=== PATIENT | female | born 1965 | race Caucasian/White ===

== ENCOUNTER 2016-12-28 10:17 | Observation (INO) | payer BC, OTHER ==
[2016-12-28] VITALS (8 sets, daily range): BP systolic 92–124; BP diastolic 52–79; PULSE 53–88; TEMP 36.6–36.7; O2SAT 94–100; Ht 175.3 cm; Wt 91.6 kg
[~2016-12-28] VITALS: Ht 175.3 cm; Wt 91.6 kg
[2016-12-28] MEDS ORDERED: FENTANYL CITRATE INJ 50 MCG/1 ML 2 ML VIAL IV STA (10:51)
[2016-12-28 11:02] LABS: BASO % 0.4 %; BASO ABS # 0.02 K/uL (0-0.2); COMPLETE YES; EOS % 1.6 %; HEMATOCRIT 40.5 % (37-47); IG% 0.2 %; LYMPH % 15.1 %; LYMPH ABS # 0.75 K/uL (1.2-3.4); MEAN CELL VOLUME 88.2 fL (80-100); MEAN CORPUSCULAR HEMOGLOBIN 32.2 pg (25-34); MEAN CORPUSCULAR HGB CONC 36.5 g/dl (32-36); MEAN PLATELET VOLUME 9.7 fL (7.4-10.4); MONO % 6.2 %; NEUT % 76.5 %; PLATELET COUNT 186 K/uL (130-400); RED BLOOD COUNT 4.59 M/uL (4.2-5.4); WHITE BLOOD COUNT 4.97 K/uL (4.8-10.8)
[2016-12-28] MEDS ORDERED: NTRGSL/4 SL (11:37)
[2016-12-28] MEDS ORDERED: VERA1CAP7 PO (11:37)
[2016-12-28] MEDS ORDERED: VLM5CL (11:37)
[2016-12-28] MEDS ORDERED: TOPI50TA16 PO (11:37)
[2016-12-28] MEDS ORDERED: ASPI-390 (11:37)
[2016-12-28] MEDS ORDERED: ASPI81TA28 PO (11:37)
[2016-12-28] MEDS ORDERED: CLOP1TAB15 PO (11:37)
--- NOTE | 2016-12-28 11:37 | DIAGNOSTIC IMAGING REPORT ---
CHEST ONE VIEW PORTABLE HISTORY: 51 years-old Female Chest Pain acute atypical chest pain COMPARISON: None available TECHNIQUE: Portable upright AP view of the chest FINDINGS: Cardiomediastinal and hilar silhouettes are within normal limits. Coronary arterial stent graft noted. No pneumothorax, pleural effusion, focal airspace consolidation or overt pulmonary edema. Bones of the chest are grossly intact. IMPRESSION: 1. No acute cardiopulmonary process. 2. Coronary arterial stent graft noted. The above report was generated using voice recognition software. It may contain grammatical, syntax or spelling errors. Electronically signed by: Perez Yu M.D. 12/28/2016 11:35 AM Dictated Date/Time: 12/28/2016 11:34 AM
[2016-12-28 11:43] LABS: ALKALINE PHOSPHATASE 95 U/L (45-117); ALT/SGPT 21 U/L (12-78); AST/SGOT 19 U/L (15-37); BLOOD UREA NITROGEN 14 mg/dl (7-18); BUN/CREATININE RATIO 12.8 (10-20); CALCIUM 9.2 mg/dl (8.5-10.1); CARBON DIOXIDE 22 mmol/L (21-32); CHLORIDE 112 mmol/L (98-107); CKMB/CK RATIO 1.9 (0-3.0); CREATININE 1.09 mg/dl (0.60-1.20); GLUCOSE 94 mg/dl (70-99); POTASSIUM 3.9 mmol/L (3.5-5.1); SODIUM 141 mmol/L (136-145)
[2016-12-28] MEDS ORDERED: ACETAMINOPHEN 325 MG TAB PO PRN (13:15)
[2016-12-28] MEDS ORDERED: DIAZ5TAB3 PO (13:17)
--- NOTE | 2016-12-28 13:43 | DIAGNOSTIC IMAGING REPORT ---
HEAD WITHOUT CONTRAST (CT) CLINICAL HISTORY: 51 years-old Female with Pre-syncope . Acute presyncopal event TECHNIQUE: Multiple axial CT images of the head were obtained without contrast. A dose lowering technique was utilized adhering to the principles of ALARA. CT DOSE: 679.75 mGycm COMPARISON: None. FINDINGS: No acute intracranial hemorrhage, midline shift, mass, large territorial ischemia or abnormal extra-axial collection. The calvarium is intact. The paranasal sinuses, mastoid air cells, and middle ear cavities are clear. IMPRESSION: No acute intracranial abnormality. The above report was generated using voice recognition software. It may contain grammatical, syntax or spelling errors. Electronically signed by: Perez Yu M.D. 12/28/2016 1:42 PM Dictated Date/Time: 12/28/2016 1:40 PM
[2016-12-28] MEDS ORDERED: IV FLUIDS COMPLETED PRN (13:45)
--- NOTE | 2016-12-28 14:10 | EMERGENCY ROOM VISIT NOTE ---
History Report prepared by Brock: Adrianna Lyman Under the Supervision of: Dr. Parvez Lofton D.O. First contact with patient: 10:41 Chief Complaint: CHEST PAIN Stated Complaint: AB PAIN CHEST PAIN LEFT ARM PAIN Nursing Triage Summary: pt reports chest pain and radiates down left arm started having abd pain last night with diarrhea has hx of 3 stents placed in march at [facility]. took 2 nitro did not help History of Present Illness The patient is a 51 year old female who presents to the Emergency Room with complaints of constant chest pain beginning this morning. Last night the patient states that she started experiencing abdominal cramping and diarrhea. She is in town for a conference and states that she has been feeling unwell. She has been tired and not eating much. This morning her symptoms persisted. When she woke up she started experiencing chest tightness, nausea, left arm pain , and left jaw pain. The patient rates her pain as a 6/10 in severity. She had an VT in March 2016 and had 3 stents placed at that time. She states that her current symptoms feel exactly like her previous VT, except that she is not currently having any burning chest pain. She took 2 nitro without any relief. Pt denies change in vision, fevers, shortness of breath, vomiting, pain with urination, and melena. She denies any history of blood clots. Source of History: patient Onset: this morning Position: chest Symptom Intensity: 6/10 Quality: other (tightness) Timing: constant Associated Symptoms: + nausea, + abdominal pain, + diarrhea, + fatigue, No fevers, No SOB, No vomiting, No melena, No urinary symptoms Note: Pt notes left arm pain and left jaw pain. Review of Systems See HPI for pertinent positives & negatives. A total of 10 systems reviewed and were otherwise negative. Past Medical & Surgical Medical Problems: (1) CAD (coronary artery disease) (2) Fibromuscular dysplasia (3) Hemiplegic migraine (4) Hx of myocardial infarction (5) Migraine headache Surgical Problems: (1) H/O heart artery stent (2) H/O: hysterectomy (3) Hx of appendectomy Family History Heart disease Social History Smoking Status: Never Smoker Smokeless Tobacco Use: No Alcohol Use: occasionally Drug Use: none Marital Status: Housing Status: lives with family Occupation Status: employed Current/Historical Medications Scheduled Aspirin (Aspirin Ec), 81 MG PO DAILY Clopidogrel (Plavix), 75 MG PO DAILY Nitroglycerin (Nitrostat), 1 TAB SL UD Topiramate (Topamax), 1 TAB PO BID Verapamil (Verelan Pm), 300 MG PO HS Scheduled PRN Diazepam (Valium), 1 TAB PO BID PRN for Headache or Pain Miscellaneous Medications Kapupgg-Vrlycjarykfts-Nwkydjbt (Excedrin Migraine) Allergies Coded Allergies: Droperidol (Unverified Allergy, Unknown, unknown reaction when coming out of anethesia, 12/28/16) Morphine (Unverified Allergy, Unknown, blood pressure issues, 12/28/16) Physical Exam Vital Signs Date Time Temp Pulse Resp B/P (MAP) Pulse Ox O2 Delivery O2 Flow Rate FiO2 12/28/16 13:50 60 18 112/67 100 Room Air 12/28/16 13:12 100 Room Air 12/28/16 12:31 63 12/28/16 12:25 60 16 104/63 100 Room Air 12/28/16 11:01 68 12/28/16 10:55 68 16 110/66 98 Room Air 12/28/16 10:30 36.5 80 18 141/70 99 Room Air Physical Exam GENERAL: alert, disheveled, well appearing, well nourished, no distress, non- toxic EYE EXAM: normal conjunctiva, PERRL and EOM's intact OROPHARYNX: no exudate, no erythema, lips, buccal mucosa, and tongue normal and mucous membranes are moist NECK: supple, no nuchal rigidity, no adenopathy, non-tender LUNGS: Clear to auscultation. Normal chest wall mechanics HEART: no murmurs, S1 normal and S2 normal ABDOMEN: abdomen soft, non-tender, normo-active bowel sounds, no masses, no rebound or guarding. BACK: Back is symmetrical on inspection and there is no deformity, no midline tenderness, no CVA tenderness. SKIN: no rashes and no bruising UPPER EXTREMITIES: upper extremities are grossly normal. Radial pulses are equal bilateral LOWER EXTREMITIES: No pitting edema. NEURO EXAM: Normal sensorium, cranial nerves II-XII intact, normal speech, no weakness of arms, no weakness of legs. No drift. Finger to nose intact. Gross sensation intact. Medical Decision & Procedures ER Provider Diagnostic Interpretation: Radiology results as stated below per my review and the radiologist's interpretation: CHEST ONE VIEW PORTABLE HISTORY: 51 years-old Female Chest Pain acute atypical chest pain COMPARISON: None available TECHNIQUE: Portable upright AP view of the chest FINDINGS: Cardiomediastinal and hilar silhouettes are within normal limits. Coronary arterial stent graft noted. No pneumothorax, pleural effusion, focal airspace consolidation or overt pulmonary edema. Bones of the chest are grossly intact. IMPRESSION: 1. No acute cardiopulmonary process. 2. Coronary arterial stent graft noted. The above report was generated using voice recognition software. It may contain grammatical, syntax or spelling errors. Electronically signed by: Perez Yu M.D. 12/28/2016 11:35 AM Dictated Date/Time: 12/28/2016 11:34 AM Laboratory Results 12/28/16 10:49 Red Blood Count 4.59, Mean Corpuscular Volume 88.2, Mean Corpuscular Hemoglobin 32.2, Mean Corpuscular Hemoglobin Concent 36.5, Mean Platelet Volume 9.7, Neutrophils (%) (Auto) 76.5, Lymphocytes (%) (Auto) 15.1, Monocytes (%) (Auto) 6.2, Eosinophils (%) (Auto) 1.6, Basophils (%) (Auto) 0.4, Neutrophils # (Auto) 3.80, Lymphocytes # (Auto) 0.75, Monocytes # (Auto) 0.31, Eosinophils # (Auto) 0.08, Basophils # (Auto) 0.02 12/28/16 10:49 Test 12/28/16 10:49 White Blood Count 4.97 K/uL (4.8-10.8) Red Blood Count 4.59 M/uL (4.2-5.4) Hemoglobin 14.8 g/dL (12.0-16.0) Hematocrit 40.5 % (37-47) Mean Corpuscular Volume 88.2 fL (80-100) Mean Corpuscular Hemoglobin 32.2 pg (25-34) Mean Corpuscular Hemoglobin Concent 36.5 g/dl (32-36) Platelet Count 186 K/uL (130-400) Mean Platelet Volume 9.7 fL (7.4-10.4) Neutrophils (%) (Auto) 76.5 % Lymphocytes (%) (Auto) 15.1 % Monocytes (%) (Auto) 6.2 % Eosinophils (%) (Auto) 1.6 % Basophils (%) (Auto) 0.4 % Neutrophils # (Auto) 3.80 K/uL (1.4-6.5) Lymphocytes # (Auto) 0.75 K/uL (1.2-3.4) Monocytes # (Auto) 0.31 K/uL (0.11-0.59) Eosinophils # (Auto) 0.08 K/uL (0-0.5) Basophils # (Auto) 0.02 K/uL (0-0.2) RDW Standard Deviation 41.4 fL (36.4-46.3) RDW Coefficient of Variation 13.0 % (11.5-14.5) Immature Granulocyte % (Auto) 0.2 % Immature Granulocyte # (Auto) 0.01 K/uL (0.00-0.02) Anion Gap 8.0 mmol/L (3-11) Est Creatinine Clear Calc Drug Dose 72.6 ml/min Estimated GFR () 67.6 Estimated GFR (Non- 58.3 BUN/Creatinine Ratio 12.8 (10-20) Calcium Level 9.2 mg/dl (8.5-10.1) Total Bilirubin 0.8 mg/dl (0.2-1) Direct Bilirubin mg/dl (0-0.2) Aspartate Amino Transf (AST/SGOT) 19 U/L (15-37) Alanine Aminotransferase (ALT/SGPT) 21 U/L (12-78) Alkaline Phosphatase 95 U/L (45-117) Total Creatine Kinase 139 U/L (26-192) Creatine Kinase MB 2.6 ng/ml (0.5-3.6) Creatine Kinase MB Ratio 1.9 (0-3.0) Troponin I < 0.015 ng/ml (0-0.045) Total Protein 6.9 gm/dl (6.4-8.2) Albumin 4.3 gm/dl (3.4-5.0) Lipase 85 U/L (73-393) Chemistry Specimen Hemolysis Laboratory results per my review. Medications Administered Medications (Trade) Dose Ordered Sig/Rosaura Route Start Time Stop Time Status Last Admin Dose Admin Fentanyl Citrate (Fentanyl Inj) 50 mcg NOW STAT IV 12/28/16 10:51 12/28/16 10:52 DC 12/28/16 11:01 50 MCG ECG Indication: chest pain Rate (beats per minute): 86 Rhythm: normal sinus Findings: ST depression (Lateral), left axis deviation Comparison ECG Date: 12/28/16 Change: Repeat ECG reveals improvement of the ST depressions in the lateral leads. ED Course ED COURSE: Vital signs were reviewed and showed normal vitals. The patients medical record was reviewed The above diagnostic studies were performed and reviewed. ED treatments and interventions as stated above. 1041: The patient was evaluated in room A12B. A complete history and physical examination was performed. 1051: Fentanyl 50 mcg IV 1153: Upon reevaluation, the patient is resting comfortably. I discussed my findings with the patient and she understands and agrees with the treatment plan. Based on the patients age, coexisting illnesses, exam and lab findings the decision to treat as an inpatient was made. The patient remained stable while under my care. The patient will be evaluated for further management. 1156: I reviewed the patient's case with Blanca Amaral PA-C. The [facility] will evaluate the patient for further management. Medical Decision Differential diagnoses includes but is not limited to acute coronary syndrome, myocardial infarction, pericarditis, pulmonary embolus, aortic dissection, pneumonia, pneumothorax, musculoskeletal, shingles, esophageal. Patient is a 51-year-old female who presents to ER for precordial chest pain associated with abdominal pain. She notes this feels exactly like her previous VT when she received 3 stents past March. Only thing different is she does not have a burning in her chest but she does have a pressure, left arm, left jaw and shortness of breath. Upon was negative. EKG without previous to compare to shows ischemic changes. She was given fentanyl. She had improvement of her symptoms. She had improvement of the EKG as well. She was given aspirin. Case is discussed with internal medicine she was admitted for further workup. Medication Reconcilliation Current Medication List: was personally reviewed by me Blood Pressure Screening Patient's blood pressure: Normal blood pressure Consults Time Called: 1153 Consulting Physician: Blanca Amaral PA-C Returned Call: 1156 I reviewed the patient's case with Blanca Amaral PA-C. The [facility] will evaluate the patient for further management. Impression Primary Impression: Precordial chest pain Additional Impression: Diffuse abdominal pain Scribe Attestation The scribe's documentation has been prepared under my direction and personally reviewed by me in its entirety. I confirm that the note above accurately reflects all work, treatment, procedures, and medical decision making performed by me. Departure Information Dispostion Being Evaluated By Hospitalist Referrals No Doctor, Assigned (PCP) Patient Instructions My [facility] Problem Qualifiers
[2016-12-28] MEDS ORDERED: OPTIRAY 320 IV PRN (14:15)
--- NOTE | 2016-12-28 15:20 | History and Physical ---
History & Physical Date & Time of Service: Dec 28, 2016 at 14:22 Chief Complaint: Chest Pain,Sob Primary Care Physician: No Doctor, Assigned History of Present Illness Source: patient This is a 51yo F with a PMH of an MT (s/p stents x 3 to D2), fibromuscular dysplasia and hemiplegic migraines who presents with chest pressure beginning this AM. Patient is in town from [place] for a conference and started to experience mid-epigastric abdominal pain with associated diarrhea after dinner last evening. Symptoms subsided overnight. Woke up this AM with substernal chest pressure that is constant, 7/10, with pain radiating down L arm. Associated symptoms include SOB, nausea and dizziness. Also endorses near syncope when walking in her hotel room preparing to come to the ER. Took 2 sublingual ntg without relief. States that this pain feels very similar to her MT in March except that she is not experiencing a burning sensation in addition to substernal pressure. This past March, patient was evaluated for similar CP at [facility] and had 3 stents placed. Later that month, patient experienced complete numbness of her L arm and was admitted to the same hospital for a stroke work-up. It was determined to be caused by a hemiplegic migraine. In April of this year, patient went to [facility] for further evaluation of her symptoms and was diagnosed with fibromuscular dysplasia. 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 Are awaiting OSH records to confirm. In addition to chest pain, diffuse abdominal pain and nausea, patient also endorses generalized fatigue and weakness. Endorses chronic lightheadedness, blurred vision and a "whooshing" sound in her ears, which she attributes to the fibromuscular dysplasia. Denies any headache, syncopal events, confusion, palpitations, vomiting, dysuria, constipation, diarrhea, LE swelling or focal neurological deficits. Past Medical/Surgical History Medical Problems: (1) Fibromuscular dysplasia Status: Chronic (2) Hemiplegic migraine Status: Chronic (3) Hx of myocardial infarction Permanent Comment: S/p stents x 3 in Mar 2016 Status: Resolved (4) Migraine headache Status: Chronic Surgical Problems: (1) H/O heart artery stent Status: Chronic (2) H/O: hysterectomy Status: Resolved (3) Hx of appendectomy Status: Resolved Family History Heart disease Social History Smoking Status: Never Smoker Smokeless Tobacco Use: No Alcohol Use: occasionally (1 drink every few months) Drug Use: none Marital Status: Housing status: lives with family (in [place] ) Occupational Status: employed Allergies Coded Allergies: Droperidol (Unverified Allergy, Unknown, unknown reaction when coming out of anethesia, 12/28/16) Morphine (Unverified Allergy, Unknown, blood pressure issues, 12/28/16) Home Medications Scheduled Aspirin (Aspirin Ec), 81 MG PO DAILY Clopidogrel (Plavix), 75 MG PO DAILY Nitroglycerin (Nitrostat), 1 TAB SL UD Topiramate (Topamax), 1 TAB PO BID Verapamil (Verelan Pm), 300 MG PO HS Scheduled PRN Diazepam (Valium), 1 TAB PO BID PRN for Headache or Pain Miscellaneous Medications Akkpxpl-Gckpemdcxttwq-Fkvykxer (Excedrin Migraine) Review of Systems Constitutional- no fever; no weight loss Eyes- See HPI ENT- no sinus drainage; no pharyngitis Pulmonary- See HPI Cardiac- See HPI GI- See HPI - no dysuria, no hematuria Musculoskeletal- no arthralgias, no myalgias Derm- no rashes, no new skin lesions, no changing skin lesions Hematologic- no unusual bruising, no unusual bleeding Lymphatics- no adenopathy Endocrine- no polyuria or polydipsia; no heat or cold intolerance Neuro- See HPI Psych- no anxiety, no depression Physical Exam Vital Signs Date Time Temp Pulse Resp B/P (MAP) Pulse Ox O2 Delivery O2 Flow Rate FiO2 12/28/16 14:16 36.7 88 20 115/69 (84) 99 105/69 (81) 12/28/16 13:50 60 18 112/67 100 Room Air 12/28/16 13:12 100 Room Air 12/28/16 12:31 63 12/28/16 12:25 60 16 104/63 100 Room Air 12/28/16 11:01 68 12/28/16 10:55 68 16 110/66 98 Room Air 12/28/16 10:30 36.5 80 18 141/70 99 Room Air General appearance: awake and alert, appears healthy, no deformities BP: 140/70 HR: 80, regular Resp: 18 Eyes: Sclera: white, conjuntiva: pink. Eyelids without erythema or lesions. PERRL. Pupils and irises round and symmetric. ENT: External ears without lesions, masses or tenderness. Nose with pink mucosa , no discharge. Oropharynx mucosa intact. No lesions, masses. Dentition intact. Neck: Supple, without lesions or masses. Trachea midline. Thyroid is non- enlarged, non-tender. Respiratory: Normal respiratory effort. No intercostal retractions or use of accessory muscles. Chest is non-tender. Clear breath sounds on auscultation. No wheezing, rales, rhonci. Cardiovascular: S1 S2 normal, no murmurs, gallops, rubs. PMI palpable, non- displaced. No edema in extremities. GI: No masses or abnormal pulsations visualized. Bowel sounds normal. Abdomen soft, non-tender. No hepatomegaly or splenomegaly. MSK: No clubbing, cyanosis of digits. Normal capillary refill. Bilateral UE and LE without asymmetry, defects or tenderness. FAROM of BLE BUE. Slight weakness noted in EMILIE of L arm compared to R arm. No muscle atrophy or abnormal movements. Skin: No rashes, lesions, ulcers. Palpation is normal, no induration. Neuro: CN II-XII intact. Sensation intact with light and sharp touch. Psych: Normal judgement, insight. Alert and oriented to person, place, time. Normal mood and affect. Diagnostics Laboratory Results Results Past 24 Hours Test 12/28/16 10:49 Range/Units White Blood Count 4.97 4.8-10.8 K/uL Red Blood Count 4.59 4.2-5.4 M/uL Hemoglobin 14.8 12.0-16.0 g/dL Hematocrit 40.5 37-47 % Mean Corpuscular Volume 88.2 80-100 fL Mean Corpuscular Hemoglobin 32.2 25-34 pg Mean Corpuscular Hemoglobin Concent 36.5 32-36 g/dl Platelet Count 186 130-400 K/uL Mean Platelet Volume 9.7 7.4-10.4 fL Neutrophils (%) (Auto) 76.5 % Lymphocytes (%) (Auto) 15.1 % Monocytes (%) (Auto) 6.2 % Eosinophils (%) (Auto) 1.6 % Basophils (%) (Auto) 0.4 % Neutrophils # (Auto) 3.80 1.4-6.5 K/uL Lymphocytes # (Auto) 0.75 1.2-3.4 K/uL Monocytes # (Auto) 0.31 0.11-0.59 K/uL Eosinophils # (Auto) 0.08 0-0.5 K/uL Basophils # (Auto) 0.02 0-0.2 K/uL RDW Standard Deviation 41.4 36.4-46.3 fL RDW Coefficient of Variation 13.0 11.5-14.5 % Immature Granulocyte % (Auto) 0.2 % Immature Granulocyte # (Auto) 0.01 0.00-0.02 K/uL D-Dimer 300 0-500 ug/L FEU Sodium Level 141 136-145 mmol/L Potassium Level 3.9 3.5-5.1 mmol/L Chloride Level 112 98-107 mmol/L Carbon Dioxide Level 22 21-32 mmol/L Anion Gap 8.0 3-11 mmol/L Blood Urea Nitrogen 14 7-18 mg/dl Creatinine 1.09 0.60-1.20 mg/dl Est Creatinine Clear Calc Drug Dose 72.6 ml/min Estimated GFR () 67.6 Estimated GFR (Non- 58.3 BUN/Creatinine Ratio 12.8 10-20 Random Glucose 94 70-99 mg/dl Calcium Level 9.2 8.5-10.1 mg/dl Total Bilirubin 0.8 0.2-1 mg/dl Direct Bilirubin 0-0.2 mg/dl Aspartate Amino Transf (AST/SGOT) 19 15-37 U/L Alanine Aminotransferase (ALT/SGPT) 21 12-78 U/L Alkaline Phosphatase 95 45-117 U/L Total Creatine Kinase 139 26-192 U/L Creatine Kinase MB 2.6 0.5-3.6 ng/ml Creatine Kinase MB Ratio 1.9 0-3.0 Troponin I < 0.015 0-0.045 ng/ml Total Protein 6.9 6.4-8.2 gm/dl Albumin 4.3 3.4-5.0 gm/dl Lipase 85 73-393 U/L Chemistry Specimen Hemolysis Diagnostic Radiology CXR: IMPRESSION: 1. No acute cardiopulmonary process. 2. Coronary arterial stent graft noted. CT Head: IMPRESSION: No acute intracranial abnormality. EKG Sinus bradycardia Nonspecific ST abnormality Impression Assessment and Plan This is a 51yo F with a PMH of an MT (s/p stents x 3 to D2), fibromuscular dysplasia and hemiplegic migraines who presents with chest pressure beginning this AM. Chest pain: -R/o ACS; risk factors include: previous MT -H/o cardiac cath in 03/29; stents x 3 to D2 -Awaiting OSH records -Initial troponin negative -EKG- NSR with non-specific ST and T wave abnormalities (no EKG on file for comparison). Repeat EKG showed sinus bradycardia but no progression/change of non-specific ST and T wave abnormalities -CXR- no acute process -Trend serial cardiac enzymes -Continue aspirin, plavix -Consulted cardio for further recs -Repeat EKG in am Stable brain aneurysm: -Per patient, aneurysm is at the A1-A2 junction -2/2 fibromuscular dysplasia, per patient -Awaiting OSH records -Asymptomatic -Consulted neuro, who recommended a CTA head Fibromuscular dysplasia: -Follows with Dr. 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 Greer. DVT Ppx: SCDs Code status: FULL PCP: Nighat ([facility]) Dispo: Plan to return home once medically stable Attending Addendum: The patient was seen and examined in ER Has Fibromyalgia with with H/O ACS s/p Stent x3 in Diagonal and hemiplegic migraine and being followed up in [facility] Admitted with Abdominal discomfort ,Chest pressure ,dizzy spell and minimal weakness in LUE Hemodynamically stable in ER with Unremarkable physical exam,labs and Imaging studies Reviewed the charts ,labs and Imaging studies Cardio,Neuro and Rheumatex consulted Agree with the Assessment and Plan Dr Ab Greer Level of Care Telemetry Advanced Directives Existing Living Will: No Existing Power of Packing Machine Operator: No Resuscitation Status FULL RESUSCITATION VTE Prophylaxis VTE Risk Assessment Done? Y/N: Yes Risk Level: Moderate Given or contraindicated: SCD's Social Service Consult None Apply
--- NOTE | 2016-12-28 15:32 | DIAGNOSTIC IMAGING REPORT ---
HEAD ANGIO WITH CONTRAST HISTORY: 51 years-old Female presents with acute presyncopal event. Reported aneurysm at the A1-A2 junction. Follow-up study. No CTA available for comparison at time of dictation. COMPARISON: CT head of same day TECHNIQUE: CTA of the head was obtained following the intravenous administration of 94 mL Optiray 320. 3-D coronal and sagittal MIPS were submitted for review. All measurements were obtained according to NASCET criteria. FINDINGS: CTA: There is atheromatous plaquing involving the distal cervical segments of the bilateral internal carotid arteries without high-grade stenosis. The remaining imaged bilateral internal carotid arteries are patent and appear normal. The imaged bilateral middle cerebral arteries are patent. The bilateral A1 segments are patent. There appears to be fenestration of the A1/A2 junction with 2 anterior communicating arteries present as seen on image 92 of series 2 and image 93. Minimal dilation of the left A2 segment on image 95 appears to be centered at the vessel infundibulum, 3 mm with the remaining portion of the A2 vessel measuring 2 mm. Imaged bilateral vertebral arteries are patent. The basilar artery and posterior cerebral arteries are patent. No high-grade stenosis, dissection or proximal branch occlusion. Venous sinuses appear patent. Imaged intracranial structures are unremarkable. No abnormal intra-axial or extra-axial enhancement. Bones appear intact. IMPRESSION: 1. 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 Minimal dilation of 3 mm involving the proximal A2 segment on the left is attributed to the vessel infundibulum from the distal most anterior communicating artery without evidence of focal aneurysm within this location. 2. No high-grade stenosis, occlusion or dissection. 3. Mild atheromatous plaquing involves the distal cervical portions of the internal carotid arteries bilaterally without high-grade stenosis. The above report was generated using voice recognition software. It may contain grammatical, syntax or spelling errors. Electronically signed by: Perez Yu M.D. 12/28/2016 3:31 PM Dictated Date/Time: 12/28/2016 3:16 PM
--- NOTE | 2016-12-28 16:04 | CARDIOLOGY CONSULTATION ---
DATE OF CONSULTATION: 12/28/2016 DATE OF CONSULTATION: 12/28/2016 REFERRING PHYSICIAN: Virginie guerrero. REASON FOR CONSULTATION: Chest and left arm discomfort. HISTORY OF PRESENT ILLNESS: This is a 51-year-old female with a history of fibromuscular dysplasia, which was diagnosed at the [facility]. Her manifestation is cerebrovascular. She was diagnosed with migraine ischemia with symptoms of left-sided weakness. The patient has no history of renal involvement. In March of this year she had a spontaneous coronary artery dissection and received several stents within the diagonal branch of her coronary anatomy. This patient is from [place], [place]. The stenting procedure occurred emergently at the [facility]. She has been stable following that procedure. She was here in [place] at a conference. Last evening she felt she may have over eaten or eaten something that did not agree with her. She developed indigestion followed by loose stools. She then developed some chest discomfort radiating into her left arm. She was concerned that she may have another spontaneous dissection and was brought to the Emergency Department. She has now been admitted. Her left arm discomfort is improved. Her EKG shows no acute changes. Her first set of cardiac markers are negative. It should be noted that the patient has no history of renal vascular hypertension due to her fibromuscular dystrophy. No involvement of her regional arteries. ALLERGIES: DROPERIDOL AND MORPHINE. PAST MEDICAL HISTORY: As outlined in history of chief complaint. The patient has a history of fibromuscular dysplasia, which was diagnosed at the [facility] following an episode of what was described as a migraine TIA. She had left-sided weakness at that time. She also in March of this year had a spontaneous coronary artery dissection that was treated with stents to the diagonal artery in [place], [place]. She has no history of hypertension and is not on any antihypertensive medicines. Her fibromuscular dystrophy does not involve the renal arteries. I believe she takes verapamil for arterial spasm. She has no prior history of diabetes or hypercholesterolemia. FAMILY MEDICAL HISTORY: Noncontributory. 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 REVIEW OF SYSTEMS: A 10-point review of systems is negative except for the history of chief complaint. PHYSICAL EXAMINATION: GENERAL: She is alert and oriented. VITAL SIGNS: Blood pressure is 112/70, pulse is regular at 60. She is afebrile. HEAD, EYES, EARS, NOSE, AND THROAT: She is normocephalic. Pupils are equal and reactive to light. Extraocular muscles are intact bilaterally. NECK: The neck veins are flat. Carotids have good upstrokes bilaterally without bruits. Thyroid is nonpalpable. RESPIRATORY: Breath sounds are equal bilaterally and lungs are clear to auscultation. CARDIOVASCULAR: Heart has a regular rhythm. Normal S1, S2. No S3, S4. No cardiac rubs or murmurs. GASTROINTESTINAL: Abdomen is soft, nontender without organomegaly. EXTREMITIES: Free of edema, digit clubbing, or cyanosis. NEUROLOGIC: Grossly intact. SKIN: Warm to touch. LYMPH NODES: Negative to palpation. IMPRESSION: 1. Fibromuscular dysplasia. 2. Spontaneous coronary artery dissection treated with stents in [place], [place]. 3. 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 RECOMMENDATIONS: As outlined above, the patient's first set of cardiac markers are negative and she has no acute changes on her EKG. We will await additional cardiac markers. There is a neurology consult that is pending. Currently, the patient is hemodynamically stable and not having any active chest pain.
[2016-12-28] MEDS: ONDANSETRON INJ 2 MG/ML 2 ML VIAL IV PRN (16:49)
--- NOTE | 2016-12-28 17:06 | Neurology Consultation ---
Neurology Consultation Date of Consultation: Dec 28, 2016. Attending Physician: Alice Greer M.D. Primary Care Physician: No Doctor, Assigned Reason for Consultation: fibromuscular dysplasia History of Present Illness Source: patient Past Medical/Surgical History Medical Problems: (1) Diffuse abdominal pain Status: Acute Social History Smokeless Tobacco Use: No Alcohol Use: occasionally (1 drink every few months) Drug Use: none Marital Status: Housing Status: lives with family Occupation Status: employed Allergies Coded Allergies: Droperidol (Unverified Allergy, Unknown, unknown reaction when coming out of anethesia, 12/28/16) Morphine (Unverified Allergy, Unknown, blood pressure issues, 12/28/16) Current Inpatient Medications Current Inpatient Medications Medications (Trade) Dose Ordered Sig/Rosaura Route Start Time Stop Time Status Last Admin Dose Admin Acetaminophen (Tylenol Tab) 650 mg Q4H PRN PO 12/28/16 13:15 01/27/17 13:14 Ondansetron HCl (Zofran Inj) 4 mg Q6H PRN IV 12/28/16 13:15 01/27/17 13:14 12/28/16 16:49 4 MG Miscellaneous (Iv Fluids Completed) 1 ea PRN PRN N/A 12/28/16 13:45 12/28/17 13:44 Ioversol (Optiray 320) 125 ml UD PRN IV 12/28/16 14:15 01/01/17 14:14 Physical Exam Vital Signs (Past 24 Hrs): Date Time Temp Pulse Resp B/P (MAP) Pulse Ox O2 Delivery O2 Flow Rate FiO2 12/28/16 14:16 36.7 88 20 115/69 (84) 99 105/69 (81) 12/28/16 13:50 60 18 112/67 100 Room Air 12/28/16 13:12 100 Room Air 12/28/16 12:31 63 12/28/16 12:25 60 16 104/63 100 Room Air 12/28/16 11:01 68 12/28/16 10:55 68 16 110/66 98 Room Air 12/28/16 10:30 36.5 80 18 141/70 99 Room Air Physical Exam: Constitutional:appearance nourished, healthy and normal Ears, Nose, Mouth and Throat: mucous membranes moist, no injection and skin normal, eyes normal Cardiovascular: normal S-1 and S-2 and regular rate and rhythm Respiratory: clear to auscultation (CTA) and no rales, rhonchi or wheeze Musculoskeletal: no peripheral edema and good distal pulses Skin: no stigmata of neurocutaneous disease noted and normal and intact Eyes: extraocular muscles intact (EOMI) and pupils equal, round and reactive to light (PERRL) NEUROLOGIC EXAMINATION: Mental status: Alert and interactive Oriented to full date and location Oriented to person Speech fluent with no evidence of aphasia Cranial Nerves facial symmetry Reflexes: Deep tendon reflexes were symmetrical and graded 2/5. Plantar responses were flexor. Sensory: no deficit with light touch Coordination: finger to nose without bi pass, heel to rubio with no difficulty Gait/Stance: Posture normal. Gait normal: with steady with steps, base, turning,tandem gait. 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, hip flex 5/5 bilaterally Laboratory Results Past 24 Hours: 12/28/16 10:49 Red Blood Count 4.59, Mean Corpuscular Volume 88.2, Mean Corpuscular Hemoglobin 32.2, Mean Corpuscular Hemoglobin Concent 36.5, Mean Platelet Volume 9.7, Neutrophils (%) (Auto) 76.5, Lymphocytes (%) (Auto) 15.1, Monocytes (%) (Auto) 6.2, Eosinophils (%) (Auto) 1.6, Basophils (%) (Auto) 0.4, Neutrophils # (Auto) 3.80, Lymphocytes # (Auto) 0.75, Monocytes # (Auto) 0.31, Eosinophils # (Auto) 0.08, Basophils # (Auto) 0.02 12/28/16 10:49 Test 12/28/16 10:49 12/28/16 16:50 White Blood Count 4.97 K/uL (4.8-10.8) Red Blood Count 4.59 M/uL (4.2-5.4) Hemoglobin 14.8 g/dL (12.0-16.0) Hematocrit 40.5 % (37-47) Mean Corpuscular Volume 88.2 fL (80-100) Mean Corpuscular Hemoglobin 32.2 pg (25-34) Mean Corpuscular Hemoglobin Concent 36.5 g/dl (32-36) Platelet Count 186 K/uL (130-400) Mean Platelet Volume 9.7 fL (7.4-10.4) Neutrophils (%) (Auto) 76.5 % Lymphocytes (%) (Auto) 15.1 % Monocytes (%) (Auto) 6.2 % Eosinophils (%) (Auto) 1.6 % Basophils (%) (Auto) 0.4 % Neutrophils # (Auto) 3.80 K/uL (1.4-6.5) Lymphocytes # (Auto) 0.75 K/uL (1.2-3.4) Monocytes # (Auto) 0.31 K/uL (0.11-0.59) Eosinophils # (Auto) 0.08 K/uL (0-0.5) Basophils # (Auto) 0.02 K/uL (0-0.2) RDW Standard Deviation 41.4 fL (36.4-46.3) RDW Coefficient of Variation 13.0 % (11.5-14.5) Immature Granulocyte % (Auto) 0.2 % Immature Granulocyte # (Auto) 0.01 K/uL (0.00-0.02) D-Dimer 300 ug/L FEU (0-500) Anion Gap 8.0 mmol/L (3-11) Est Creatinine Clear Calc Drug Dose 72.6 ml/min Estimated GFR () 67.6 Estimated GFR (Non- 58.3 BUN/Creatinine Ratio 12.8 (10-20) Calcium Level 9.2 mg/dl (8.5-10.1) Total Bilirubin 0.8 mg/dl (0.2-1) Direct Bilirubin mg/dl (0-0.2) Aspartate Amino Transf (AST/SGOT) 19 U/L (15-37) Alanine Aminotransferase (ALT/SGPT) 21 U/L (12-78) Alkaline Phosphatase 95 U/L (45-117) Total Protein 6.9 gm/dl (6.4-8.2) Albumin 4.3 gm/dl (3.4-5.0) Lipase 85 U/L (73-393) Chemistry Specimen Hemolysis Imaging CTA-. 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 Minimal dilation of 3 mm involving the proximal A2 segment on the left is attributed to the vessel infundibulum from the distal most anterior communicating artery without evidence of focal aneurysm within this location. No high-grade stenosis, occlusion or dissection. Mild atheromatous plaquing involves the distal cervical portions of the internal carotid arteries bilaterally without high-grade stenosis. CT head- no acute findings Impression 51 year old female with fibromuscular dysplasia and history of hemiplegic migraines Plan 1. CTA head - no aneurysm revealed 2. continue topamax and verapamil at home dosing would restart for headache prevention 3. left arm weakness is subtle and may be part of her complex migraine history 4. cardiology input for chest pain 5. TTE pending read 6. if left arm weakness persists would MRI brain with and without contrast- will reevaluate tomorrow continue to watch no further recommendations at this time I have seen and discussed above patient with Dr Lasha Ramos, neurology I have seen this woman and examined er with Stephania Ritter and have reviewed the available labs and imaging Admitted for gi illness followed by chesst pain and then left arm heaviness with right sided headache Has a history of what has been diagnosed as midlife onset hemiplegic migraines and fibromuscular dysplasia with possible small jenn aneurysm vs [facility]undibulum [facility] four to six weeks ago and had a protracted left hemiplegia with headache about a year ago in [place] called a cva with negitive serial imaging Now with a mild left upper extremity drift and tremor with rithsided headache ct and cta show little clear evidence for aneurysm and no cleat cva. If findings persist tomorrow will need mri to evaluate for possible cva or complicated migraine with cva but hopefully this will clear and she can be discharged on her regular meds ie verapamil and topamax ( these sould not be held tonight ) we will check back tomorrow afternoon Lasha Ramos MD
[2016-12-28 17:39] LABS: URINE APPEARANCE CLEAR (CLEAR); URINE BILIRUBIN NEG (NEG); URINE COLOR YELLOW; URINE NITRITE NEG (NEG); URINE PH 6.5 (4.5-7.5); URINE SPECIFIC GRAVITY > 1.045 (1.000-1.030); UROBILINOGEN NEG (NEG)
[2016-12-28 17:48] LABS: MANUAL MICROSCOPIC REQUIRED? NO; REVIEW REQ? NO
[2016-12-28 17:50] LABS: CKMB/CK RATIO 1.8 (0-3.0)
[2016-12-28] MEDS ORDERED: DIAZEPAM 5MG TAB PO PRN (18:00)
[2016-12-28] MEDS ORDERED: ONDANSETRON INJ 2 MG/ML 2 ML VIAL IV PRN (18:00)
[2016-12-28] MEDS ORDERED: NITROGLYCERIN 0.4 MG SL PER TAB CHARGE SL PRN (18:00)
[2016-12-28] MEDS: NSS + 20MEQ KCL 1000ML 1,000 ML IV SCH (19:06)
[2016-12-28] MEDS: TOPIRAMATE 25 MG TAB PO SCH (20:22)
[2016-12-28] MEDS ORDERED: HYDROmorphone INJ 0.5 MG/0.5 ML SYR IV PRN (21:45)
[2016-12-28] MEDS: ACETAMINOPHEN 500 MG TAB PO SCH (21:55)
[2016-12-28] MEDS: DICYCLOMINE HCL 20 MG TAB PO PRN (22:28)
[2016-12-28 23:10] LABS: CKMB/CK RATIO 1.8 (0-3.0)
[2016-12-29 03:57] VITALS: BP 95/65; PULSE 53; PULSE 70; TEMP 36.5; O2SAT 98
[2016-12-29] MEDS: ONDANSETRON INJ 2 MG/ML 2 ML VIAL IV PRN (04:57)
[2016-12-29] MEDS: NSS + 20MEQ KCL 1000ML 1,000 ML IV SCH ×2 (04:58→14:29)
[2016-12-29] MEDS: ACETAMINOPHEN 500 MG TAB PO SCH ×3 (04:59→22:02)
[2016-12-29] MEDS: DICYCLOMINE HCL 20 MG TAB PO PRN (04:59)
[2016-12-29 05:56] LABS: HEMATOCRIT 37.9 % (37-47); MEAN CELL VOLUME 89.4 fL (80-100); MEAN CORPUSCULAR HEMOGLOBIN 30.9 pg (25-34); MEAN CORPUSCULAR HGB CONC 34.6 g/dl (32-36); MEAN PLATELET VOLUME 9.4 fL (7.4-10.4); PLATELET COUNT 155 K/uL (130-400); RED BLOOD COUNT 4.24 M/uL (4.2-5.4); WHITE BLOOD COUNT 3.74 K/uL (4.8-10.8)
[2016-12-29 06:33] LABS: BLOOD UREA NITROGEN 11 mg/dl (7-18); BUN/CREATININE RATIO 11.5 (10-20); CALCIUM 8.4 mg/dl (8.5-10.1); CARBON DIOXIDE 20 mmol/L (21-32); CHLORIDE 115 mmol/L (98-107); CREATININE 0.98 mg/dl (0.60-1.20); GLUCOSE 87 mg/dl (70-99); MAGNESIUM 2.1 mg/dl (1.8-2.4); POTASSIUM 3.7 mmol/L (3.5-5.1); SODIUM 142 mmol/L (136-145)
[2016-12-29 06:44] LABS: C-REACTIVE PROTEIN < 0.29 mg/dl (0-0.29); CHOLESTEROL 152 mg/dl (0-200); CHOLESTEROL/HDL RATIO 3.2; HDL CHOLESTEROL 47 mg/dl; LDL CHOLESTEROL CALCULATED 86 mg/dl; TRIGLYCERIDES 97 mg/dl (0-150); VERY LOW DENSITY LIPOPROT CALC 19 mg/dl
[2016-12-29 07:59] VITALS: BP 98/64; PULSE 54; TEMP 36.6; O2SAT 98
--- NOTE | 2016-12-29 08:13 | Rheumatology Consultation ---
Rheumatology Consultation Date of Consultation: Dec 29, 2016. Reason for Consultation: Fibromuscular dysplasia History of Present Illness 51 year old woman who has been admitted for further evaluation of chest pain, left sided upper extremity weakness, abdominal pain, nausea, and diarrhea. She was diagnosed with fibromuscular dysplasia at the [facility] in April of this year. She lives in [facility] and was hospitalized in March for chest pain. She was diagnosed with a heart attack and underwent cardiac catheterization and received 3 stents. She reports that during that hospitalization, she had imaging of her carotid arteries that showed "beading". In March, she was also hospitalized for left sided upper extremity weakness concerning for stroke and required 6 weeks of outpatient rehab. In April, she was seen at the [facility] by neurology and cardiology and was diagnosed with fibromuscular dysplasia. It was determined that her heart attack in March was actually due to spontaneous coronary artery dissection. Her left sided weakness was attributed to hemiplegic migraines for which she is on topamax and verapamil. She presented to [facility] ED 2 days ago because she developed nausea, chest pain, and loose stools. She was concerned that her chest pain was reminiscent of when she had her heart attack in March. Her chest pain has improved but she continues to have loose stools. There is no family history of autoimmune disease. 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 She was on prednisone for several weeks in April. She denies a history of PE, DVT, or stroke. She had 3 miscarriages and 3 live births. She does not smoke and drinks alcohol on special occasions. She denies fevers, chills, weight loss, night sweats, rashes, joint pain, or mucosal ulcers. She notes that her blood pressure has been normal to low range, and she does monitor it at home. She was told that she does not have renal involvmenet of FMD at this time. She is followed by cardiology and vascular surgery at [facility]. She works closely with her primary care physician in [place], [place]. 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 Past Medical/Surgical History Medical History: glaucoma, migraines Surgical History: cardiac catheterization cardiac stent x 3 (03/2016) Family History Non contributory Social History Smoking Status: Never Smoker History of Alcohol Use: Yes (mixed drink special holidays) Drug Use: none Marital Status: Housing Status: lives with family (in [place] ) Occupation Status: employed Review of Systems Constitutional: + weakness, No fever, No chills Eyes: No eye pain ENT: No hearing loss, No sore throat Respiratory: No shortness of breath, No dyspnea on exertion Cardiac: + chest pain Abdomen: + nausea, + diarrhea Female : No dysuria Neurologic: + weakness Heme: No swollen lymph nodes Skin: No rash Allergies Coded Allergies: Droperidol (Unverified Allergy, Unknown, unknown reaction when coming out of anethesia, 12/28/16) Morphine (Unverified Allergy, Unknown, blood pressure issues, 12/28/16) Medications Current Inpatient Medications Medications (Trade) Dose Ordered Sig/Rosaura Route Start Time Stop Time Status Last Admin Dose Admin Acetaminophen (Tylenol Tab) 650 mg Q4H PRN PO 12/28/16 13:15 01/27/17 13:14 Future Hold Ondansetron HCl (Zofran Inj) 4 mg Q6H PRN IV 12/28/16 13:15 01/27/17 13:14 12/29/16 04:57 4 MG Miscellaneous (Iv Fluids Completed) 1 ea PRN PRN N/A 12/28/16 13:45 12/28/17 13:44 Ioversol (Optiray 320) 125 ml UD PRN IV 12/28/16 14:15 01/01/17 14:14 Aspirin (Ecotrin Tab) 81 mg DAILY PO 12/29/16 09:00 01/28/17 08:59 Clopidogrel Bisulfate (plAVix TAB) 75 mg DAILY PO 12/29/16 09:00 01/28/17 08:59 Diazepam (Valium Tab) 5 mg BID PRN PO 12/28/16 18:00 01/27/17 17:59 Nitroglycerin (Nitrostat Tab) 0.4 mg UD PRN SL 12/28/16 18:00 01/27/17 17:59 Topiramate (Topamax Tab) 50 mg BID PO 12/28/16 21:00 01/27/17 20:59 12/28/16 20:22 50 MG Potassium Chloride/Sodium Chloride 1,000 ml @ 100 mls/hr Q10H IV 12/28/16 18:15 01/27/17 18:14 12/29/16 04:58 100 MLS/HR Acetaminophen (Tylenol Tab) 1,000 mg Q8 PO 12/28/16 22:00 01/27/17 21:59 12/29/16 04:59 1,000 MG Non-Formulary Medication (Non-Formulary Patient'S Own Med) 1 ea QAM PO 12/29/16 09:00 01/28/17 08:59 Hydromorphone HCl (Dilaudid Inj) 0.5 mg Q4 PRN IV 12/28/16 21:45 01/11/17 21:44 Dicyclomine HCl (Bentyl Tab) 10 mg TID PRN PO 12/28/16 21:45 01/27/17 21:44 12/29/16 04:59 10 MG Physical Exam Date Time Temp Pulse Resp B/P (MAP) Pulse Ox O2 Delivery O2 Flow Rate FiO2 12/29/16 04:00 Room Air 12/29/16 03:57 36.5 70 16 95/65 (75) 98 Room Air 12/29/16 00:00 Room Air 12/28/16 23:46 36.6 53 16 92/52 (65) 97 Room Air 12/28/16 21:56 55 102/64 (77) 12/28/16 20:00 95 Room Air 12/28/16 19:44 36.6 59 20 112/74 (87) 94 Room Air 12/28/16 16:40 36.7 70 18 124/79 (94) 96 Room Air 12/28/16 16:00 96 Room Air 12/28/16 14:16 36.7 88 20 115/69 (84) 99 105/69 (81) 12/28/16 13:50 60 18 112/67 100 Room Air 12/28/16 13:12 100 Room Air 12/28/16 12:31 63 12/28/16 12:25 60 16 104/63 100 Room Air 12/28/16 11:01 68 12/28/16 10:55 68 16 110/66 98 Room Air 12/28/16 10:30 36.5 80 18 141/70 99 Room Air Eyes: bilateral eyes EOMI ENT: normal ENT inspection, hearing grossly normal Neck: supple, no adenopathy, thyroid normal, + pertinent finding (bilateral carotid bruits) Respiratory: chest non-tender, lungs clear, normal breath sounds, no respiratory distress, no accessory muscle use Cardiovascular: regular rate, rhythm, no edema, no murmur Abdomen: normal bowel sounds, non tender, soft, no organomegaly Musculoskeletal: No joint tenderness or swelling Neurologic/Psychiatric: alert, normal mood/affect, oriented x 3 Skin: normal color, warm/dry, no rash Laboratory Results Last 24 Hours Test 12/28/16 10:49 12/28/16 16:50 12/28/16 17:00 12/28/16 22:37 White Blood Count 4.97 K/uL Red Blood Count 4.59 M/uL Hemoglobin 14.8 g/dL Hematocrit 40.5 % Mean Corpuscular Volume 88.2 fL Mean Corpuscular Hemoglobin 32.2 pg Mean Corpuscular Hemoglobin Concent 36.5 g/dl Platelet Count 186 K/uL Mean Platelet Volume 9.7 fL Neutrophils (%) (Auto) 76.5 % Lymphocytes (%) (Auto) 15.1 % Monocytes (%) (Auto) 6.2 % Eosinophils (%) (Auto) 1.6 % Basophils (%) (Auto) 0.4 % Neutrophils # (Auto) 3.80 K/uL Lymphocytes # (Auto) 0.75 K/uL Monocytes # (Auto) 0.31 K/uL Eosinophils # (Auto) 0.08 K/uL Basophils # (Auto) 0.02 K/uL RDW Standard Deviation 41.4 fL RDW Coefficient of Variation 13.0 % Immature Granulocyte % (Auto) 0.2 % Immature Granulocyte # (Auto) 0.01 K/uL D-Dimer 300 ug/L FEU Sodium Level 141 mmol/L Potassium Level 3.9 mmol/L Chloride Level 112 mmol/L Carbon Dioxide Level 22 mmol/L Anion Gap 8.0 mmol/L Blood Urea Nitrogen 14 mg/dl Creatinine 1.09 mg/dl Est Creatinine Clear Calc Drug Dose 72.6 ml/min Estimated GFR () 67.6 Estimated GFR (Non- 58.3 BUN/Creatinine Ratio 12.8 Random Glucose 94 mg/dl Calcium Level 9.2 mg/dl Total Bilirubin 0.8 mg/dl Direct Bilirubin mg/dl Aspartate Amino Transf (AST/SGOT) 19 U/L Alanine Aminotransferase (ALT/SGPT) 21 U/L Alkaline Phosphatase 95 U/L Total Creatine Kinase 139 U/L 114 U/L 107 U/L Creatine Kinase MB 2.6 ng/ml 2.0 ng/ml 1.9 ng/ml Creatine Kinase MB Ratio 1.9 1.8 1.8 Troponin I < 0.015 ng/ml < 0.015 ng/ml < 0.015 ng/ml Total Protein 6.9 gm/dl Albumin 4.3 gm/dl Lipase 85 U/L Chemistry Specimen Hemolysis Urine Color YELLOW Urine Appearance CLEAR Urine pH 6.5 Urine Specific Rowley > 1.045 Urine Protein NEG Urine Glucose (UA) NEG Urine Ketones TRACE Urine Occult Blood 3+ Urine Nitrite NEG Urine Bilirubin NEG Urine Urobilinogen NEG Urine Leukocyte Esterase NEG Urine WBC (Auto) 1-5 /hpf Urine RBC (Auto) 10-30 /hpf Urine Hyaline Casts (Auto) 0 /lpf Urine Epithelial Cells (Auto) 5-10 /lpf Urine Bacteria (Auto) NEG Test 12/29/16 05:31 White Blood Count 3.74 K/uL Red Blood Count 4.24 M/uL Hemoglobin 13.1 g/dL Hematocrit 37.9 % Mean Corpuscular Volume 89.4 fL Mean Corpuscular Hemoglobin 30.9 pg Mean Corpuscular Hemoglobin Concent 34.6 g/dl RDW Standard Deviation 42.4 fL RDW Coefficient of Variation 13.2 % Platelet Count 155 K/uL Mean Platelet Volume 9.4 fL Erythrocyte Sedimentation Rate 2 mm/hr Sodium Level 142 mmol/L Potassium Level 3.7 mmol/L Chloride Level 115 mmol/L Carbon Dioxide Level 20 mmol/L Anion Gap 7.0 mmol/L Blood Urea Nitrogen 11 mg/dl Creatinine 0.98 mg/dl Est Creatinine Clear Calc Drug Dose 80.9 ml/min Estimated GFR () 76.9 Estimated GFR (Non- 66.3 BUN/Creatinine Ratio 11.5 Random Glucose 87 mg/dl Calcium Level 8.4 mg/dl Magnesium Level 2.1 mg/dl C-Reactive Protein < 0.29 mg/dl Triglycerides Level 97 mg/dl Cholesterol Level 152 mg/dl HDL Cholesterol 47 mg/dl LDL Cholesterol, Calculated 86 mg/dl VLDL Cholesterol, Calculated 19 mg/dl Cholesterol/HDL Ratio 3.2 Thyroid Stimulating Hormone (TSH) 3.560 uIu/ml Assessment & Plan Assessment & Plan: 51 year old woman with fibromuscular dysplasia manifested by episode of spontaneous coronary artery dissection s/p stenting and hemiplegic migraines admitted for chest pain and GI symptoms. She does not have any clinical features to suggestive of inflammatory vasculitis at this time. Her sed rate and CRP are normal and CBC stable without anemia. Fibromuscular dysplasia is a noninflammatory arteriopathy that is managed by close monitoring, blood pressure control, and surgical interventions of the affected vascular territory if warranted. Her abdominal symptoms are likely associated with her condition. She informs me that she has abdominal bruits, but I could not appreciate this on her exam today. Plan 1. Appreciate cardiology and neurology input 2. No specific immunotherapy from rheum standpoint. 3. Maintain good hemodynamics and blood pressure control 4. Pain control per primary. Thank you for allowing rheumatology to participate in the care of this patient.
[2016-12-29] MEDS: TOPIRAMATE 25 MG TAB PO SCH ×2 (08:33→21:24)
[2016-12-29] MEDS: CLOPIDOGREL BISULFATE 75 MG TAB PO SCH (08:33)
[2016-12-29] MEDS: ASPIRIN 81 MG ECTAB PO SCH (08:33)
[2016-12-29] MEDS: VERAPAMIL PO SCH (08:34)
[2016-12-29] MEDS ORDERED: ALUMINUM/MAGNESIUM/SIMETH (MAALOX MAX) 30 ML UDC PO PRN (09:45)
--- NOTE | 2016-12-29 11:16 | Progress Note ---
Internal Med Progress Note Date of Service: Dec 29, 2016. Provider Documentation: SUBJECTIVE: The patient was seen and examined Still has some epigastric discomfort and Nausea,no vomiting-going on for a while No more Chest pressure Still has some Left UE weakness OBJECTIVE: Vital Signs-as noted below Exam: General-NO distress Eyes-normal ENT-normal Neck-supple Lungs-Clear to auscultate bilaterally Heart-Regular,no murmur Abdomen-Benign,no masses,bowel sound present Extremities-NO edema Neuro-AAOx3 No focal Neurology Deficit Lab data as noted below. ASSESSMENT & PLAN: This is a 51yo F with a PMH of an HI (s/p stents x 3 to D2), fibromuscular dysplasia and hemiplegic migraines who presents with chest pressure beginning this AM. Chest Pressure/pain -R/o ACS; risk factors include: previous HI -H/o cardiac cath in 03/29; stents x 3 to D2 -Troponin negative X3 and No significant EKG changes -CXR- no acute process -Continue aspirin, Plavix -Appreciate Cardiology input -ECHO;;Pending Epigastric Discomfort with Nausea Ongoing for a while No vomiting ,no symptoms suggesting of any Gall stone disease Will get US of the GB Maalox/Mylanta as needed OP GI evaluation-r/o HP Stable brain aneurysm: -has had dizzy spell but no fall and or LOC before admission -Per patient, aneurysm is at the A1-A2 junction -2/2 fibromuscular dysplasia, per patient -Asymptomatic -Consulted neuro, who recommended a CTA head -No new lesion in CTA Fibromuscular dysplasia: -Follows with Dr. Swan and Hiral at the 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) -Awaiting OSH records -Consulted rheum for further recs for management of current CP in the setting of FMD -Consulted Rheumatology -no further recommendation H/o hemiplegic migraines: -Diagnosed in Mar of this year -Slight weakness of L arm on exam -No headache presently -Continue verapamil and Topamax for ppx DVT PROPHYLAXIS SCDs-Ambulant DISPOSITION Likely home this afternoon/tomorrow Vital Signs: Date Time Temp Pulse Resp B/P (MAP) Pulse Ox O2 Delivery O2 Flow Rate FiO2 12/29/16 07:59 36.6 54 18 98/64 (75) 98 Room Air 12/29/16 04:00 Room Air 12/29/16 03:57 36.5 70 16 95/65 (75) 98 Room Air 12/29/16 00:00 Room Air 12/28/16 23:46 36.6 53 16 92/52 (65) 97 Room Air 12/28/16 21:56 55 102/64 (77) 12/28/16 20:00 95 Room Air 12/28/16 19:44 36.6 59 20 112/74 (87) 94 Room Air 12/28/16 16:40 36.7 70 18 124/79 (94) 96 Room Air 12/28/16 16:00 96 Room Air 12/28/16 14:16 36.7 88 20 115/69 (84) 99 105/69 (81) 12/28/16 13:50 60 18 112/67 100 Room Air 12/28/16 13:12 100 Room Air 12/28/16 12:31 63 12/28/16 12:25 60 16 104/63 100 Room Air Lab Results: Results Past 24 Hours Test 12/28/16 16:50 12/28/16 17:00 12/28/16 22:37 12/29/16 05:31 Range/Units Urine Color YELLOW Urine Appearance CLEAR CLEAR Urine pH 6.5 4.5-7.5 Urine Specific [place] > 1.045 1.000-1.030 Urine Protein NEG NEG Urine Glucose (UA) NEG NEG Urine Ketones TRACE NEG Urine Occult Blood 3+ NEG Urine Nitrite NEG NEG Urine Bilirubin NEG NEG Urine Urobilinogen NEG NEG Urine Leukocyte Esterase NEG NEG Urine WBC (Auto) 1-5 0-5 /hpf Urine RBC (Auto) 10-30 0-4 /hpf Urine Hyaline Casts (Auto) 0 0-5 /lpf Urine Epithelial Cells (Auto) 5-10 0-5 /lpf Urine Bacteria (Auto) NEG NEG Total Creatine Kinase 114 107 26-192 U/L Creatine Kinase MB 2.0 1.9 0.5-3.6 ng/ml Creatine Kinase MB Ratio 1.8 1.8 0-3.0 Troponin I < 0.015 < 0.015 0-0.045 ng/ml White Blood Count 3.74 4.8-10.8 K/uL Red Blood Count 4.24 4.2-5.4 M/uL Hemoglobin 13.1 12.0-16.0 g/dL Hematocrit 37.9 37-47 % Mean Corpuscular Volume 89.4 80-100 fL Mean Corpuscular Hemoglobin 30.9 25-34 pg Mean Corpuscular Hemoglobin Concent 34.6 32-36 g/dl RDW Standard Deviation 42.4 36.4-46.3 fL RDW Coefficient of Variation 13.2 11.5-14.5 % Platelet Count 155 130-400 K/uL Mean Platelet Volume 9.4 7.4-10.4 fL Erythrocyte Sedimentation Rate 2 0-21 mm/hr Sodium Level 142 136-145 mmol/L Potassium Level 3.7 3.5-5.1 mmol/L Chloride Level 115 98-107 mmol/L Carbon Dioxide Level 20 21-32 mmol/L Anion Gap 7.0 3-11 mmol/L Blood Urea Nitrogen 11 7-18 mg/dl Creatinine 0.98 0.60-1.20 mg/dl Est Creatinine Clear Calc Drug Dose 80.9 ml/min Estimated GFR () 76.9 Estimated GFR (Non- 66.3 BUN/Creatinine Ratio 11.5 10-20 Random Glucose 87 70-99 mg/dl Calcium Level 8.4 8.5-10.1 mg/dl Magnesium Level 2.1 1.8-2.4 mg/dl C-Reactive Protein < 0.29 0-0.29 mg/dl Triglycerides Level 97 0-150 mg/dl Cholesterol Level 152 0-200 mg/dl HDL Cholesterol 47 mg/dl LDL Cholesterol, Calculated 86 mg/dl VLDL Cholesterol, Calculated 19 mg/dl Cholesterol/HDL Ratio 3.2 Thyroid Stimulating Hormone (TSH) 3.560 0.300-4.500 uIu/ml
[2016-12-29 11:19] VITALS: BP 105/66; PULSE 58; TEMP 36.7; O2SAT 97
--- NOTE | 2016-12-29 12:40 | PROGRESS NOTE ---
DATE: 12/29/2016 FOLLOWUP VISIT SUBJECTIVE: The patient is a 51-year-old female with fibromuscular dysplasia with mostly cerebrovascular manifestations and a previous spontaneous dissection of the coronary artery. She has no renal involvement. She presented with GI upset, resulting in chest and left arm discomfort. Her cardiac markers are negative. Her EKG shows no acute changes. An echocardiogram was completed that shows no wall motion abnormalities. All these findings lead this away from a cardiac origin to her symptoms. She does have some residual weakness of the left arm. Neurology is seeing her and will make a decision regarding further imaging such as a brain MRI when they see her later today. From a cardiac standpoint, I do not plan any additional cardiac testing at this time. OBJECTIVE: VITAL SIGNS: Blood pressure is 105/66, pulse is regular at 58. GENERAL: She is afebrile. HEENT: She is normocephalic. Pupils are equal and reactive to light. Extraocular muscles are intact bilaterally. NECK: The neck veins are flat. Carotids have good upstrokes bilaterally without bruits. Thyroid is nonpalpable. RESPIRATORY: Breath sounds equal bilaterally and clear to auscultation. CARDIOVASCULAR: Heart has a regular rhythm. Normal S1, S2. No S3, S4. No cardiac rubs or murmurs. GASTROINTESTINAL: Abdomen is soft, nontender without organomegaly. EXTREMITIES: Free of edema, digit clubbing or cyanosis. NEUROLOGIC: Grossly intact. SKIN: Warm to touch. LYMPH NODES: Negative to palpation. IMPRESSION: 1. Fibromuscular dysplasia. 2. Previous spontaneous coronary dissection treated with stents in [place], [place]. RECOMMENDATIONS: As outlined above, at this point I plan no additional cardiac testing. 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
--- NOTE | 2016-12-29 14:20 | DIAGNOSTIC IMAGING REPORT ---
ABDOMINAL ULTRASOUND, RIGHT UPPER QUADRANT HISTORY: ] Quadrant pain. r/o Gallstones . COMPARISON: None. FINDINGS: Pancreas: The pancreatic tail is obscured by overlying bowel gas. The remaining portions of the pancreas are within normal limits. Liver: Unremarkable. Gallbladder: No gallbladder wall thickening. No gallstones. CBD: 4 mm. Right kidney: No hydronephrosis. IMPRESSION: No significant abnormality identified within the right upper quadrant. Electronically signed by: Suman Leger M.D. 12/29/2016 2:18 PM Dictated Date/Time: 12/29/2016 2:17 PM
--- NOTE | 2016-12-29 14:41 | ECHOCARDIOGRAM REPORT ---
*NOTICE TO RECEIVING [employer] This information is strictly Confidential and protected under [place] law. [place] law prohibits you from making any further disclosure of this information unless further disclosure is expressly permitted by the written consent of the person to whom it pertains or is authorized by law. A general authorization for the release of medical or other information is not sufficient for this purpose. Hospital accepts no responsibility if the information is made available to any other person, INCLUDING THE PATIENT. Interpretation Summary * Name: JENIFFER HOLLAND Study Date: 12/28/2016 03:24 PM BP: 105/69 mmHg * Patient Location: [facility]\S\N283\S\2 HR: 88 * : 1965 (M/d/yyyy) Gender: Female Height: 69 in * Age: 51 yrs Ethnicity: [place] Weight: 200 lb * Ordering Physician: Pawan Smith * Referring Physician: Self, Referred * Performed By: Amisha Pratt RDCS * * Reason For Study: Chest Pain * BSA: 2.1 m2 * This was essentially a normal study. * All chambers of normal size and function * Normal bi-ventricular function * -- Conclusions -- * This was essentially a normal study. * All chambers of normal size and function * Normal bi-ventricular function * No significant valvular disease. Procedure Details * A complete two-dimensional transthoracic echocardiogram was performed (2D, M-mode, Doppler and color flow Doppler). Left Ventricle * The left ventricle is normal in size. * There is normal left ventricular wall thickness. * Ejection Fraction = 55-60%. * The left ventricular wall motion is normal. Right Ventricle * The right ventricle is normal size. * The right ventricular systolic function is normal. Atria * The left atrial size is normal. * Right atrial size is normal. * The interatrial septum is intact with no evidence for an atrial septal defect. Mitral Valve * The mitral valve anatomy is normal. * Significant mitral regurgitation is absent. Tricuspid Valve * The tricuspid valve anatomy is normal. * Significant tricuspid regurgitation is absent. Aortic Valve * The aortic valve is tricuspid. The leaflet thickness if normal. There is no aortic stenosis, and no significant insufficiency. * The aortic valve opens well. Great Vessels * The aortic root and proximal ascending aorta are normal sized. Pericardium/Pleural * There is no pericardial effusion. MMode 2D Measurements and Calculations IVSd 0.89 cm IVSs 1.2 cm LVIDd 4.2 cm LVIDs 2.6 cm LVPWd 0.90 cm LVPWs 1.6 cm IVS/LVPW 0.98 FS 37.7 % EDV(Teich) 80.6 ml ESV(Teich) 25.7 ml EF(Teich) 68.1 % EDV(cubed) 76.5 ml ESV(cubed) 18.5 ml EF(cubed) 75.8 % % IVS thick 33.9 % % LVPW thick 80.5 % LV mass(C)d 120.0 grams LV mass(C)dI 58.1 grams/m\S\2 LV mass(C)s 121.1 grams LV mass(C)sI 58.6 grams/m\S\2 SV(Teich) 54.9 ml SI(Teich) 26.6 ml/m\S\2 SV(cubed) 58.0 ml SI(cubed) 28.1 ml/m\S\2 ACS 2.5 cm LA dimension 3.4 cm LVAd ap4 24.0 cm\S\2 LVLd ap4 7.2 cm EDV(MOD-sp4) 66.9 ml EDV(sp4-el) 67.6 ml LVAs ap4 14.5 cm\S\2 LVLs ap4 6.1 cm ESV(MOD-sp4) 30.3 ml ESV(sp4-el) 29.5 ml EF(MOD-sp4) 54.7 % EF(sp4-el) 56.3 % LVAd ap2 27.0 cm\S\2 LVLd ap2 7.9 cm EDV(MOD-sp2) 79.6 ml EDV(sp2-el) 78.9 ml LVAs ap2 15.5 cm\S\2 LVLs ap2 6.6 cm ESV(MOD-sp2) 31.8 ml ESV(sp2-el) 30.9 ml EF(MOD-sp2) 60.0 % EF(sp2-el) 60.8 % LVLd %diff 8.0 % EDV(MOD-bp) 76.5 ml LVLs %diff 7.6 % ESV(MOD-bp) 32.4 ml EF(MOD-bp) 57.7 % SV(MOD-sp4) 36.6 ml SI(MOD-sp4) 17.7 ml/m\S\2 SV(MOD-sp2) 47.8 ml SI(MOD-sp2) 23.1 ml/m\S\2 SV(MOD-bp) 44.1 ml SI(MOD-bp) 21.4 ml/m\S\2 SV(sp4-el) 38.1 ml SI(sp4-el) 18.4 ml/m\S\2 SV(sp2-el) 48.0 ml SI(sp2-el) 23.2 ml/m\S\2 Doppler Measurements and Calculations MV E max asher 80.0 cm/sec MV A max asher 53.8 cm/sec MV E/A 1.5 MV dec time 0.20 sec Ao V2 max 113.4 cm/sec Ao max PG 5.1 mmHg Ao max PG (full) 2.3 mmHg LV V1 max PG 2.9 mmHg LV V1 max 84.9 cm/sec PA V2 max 118.2 cm/sec PA max PG 5.6 mmHg PI max asher 182.2 cm/sec PI max PG 13.3 mmHg PI dec slope 195.2 cm/sec\S\2 PI P1/2t 273.4 msec TR max asher 164.1 cm/sec
--- NOTE | 2016-12-29 15:41 | Neurology Progress Notes ---
Neurology Progress Note Date of Service Dec 29, 2016. Lisette Lorenzo is a 51 year old female PMH of an [place] (s/p stents x 3 to D2), fibromuscular dysplasia and hemiplegic migraines who presents with chest pressure. She is from [place] for a conference and started to experience mid- epigastric abdominal pain with associated diarrhea after dinner last evening. Symptoms subsided overnight. Woke up this AM with substernal chest pressure that is constant, 7/10, with pain radiating down L arm. Associated symptoms include SOB, nausea and dizziness.She took 2 sublingual NTG without relief. In March 2016 she had CP and presented to [facility] and had 3 stents placed. She experienced complete numbness of her L arm and was admitted to the same hospital for a stroke work-up. It was determined to be caused by a hemiplegic migraine. She then went to [facility] in April 2016, and was diagnosed with fibromuscular dysplasia. In November, She had a CTA and it was discovered she had a A1-A2 junction ANR. Today she states she feels about the same. She is still experiencing abdominal cramping and nausea and left arm weakness, also so blurring of right eye. denies CP, SOB, vomiting, swallowing difficulty, weakness in LE or R arm, falls. Objective Date Time Temp Pulse Resp B/P (MAP) Pulse Ox O2 Delivery O2 Flow Rate FiO2 12/29/16 12:00 Room Air 12/29/16 12:00 Room Air 12/29/16 11:19 36.7 58 12/29/16 11:19 36.7 58 18 105/66 (79) 97 Nasal Cannula 2.0 12/29/16 08:00 Room Air 12/29/16 07:59 36.6 54 18 98/64 (75) 98 Room Air 12/29/16 04:00 Room Air 12/29/16 03:57 36.5 70 16 95/65 (75) 98 Room Air 12/29/16 00:00 Room Air 12/28/16 23:46 36.6 53 16 92/52 (65) 97 Room Air 12/28/16 21:56 55 102/64 (77) 12/28/16 20:00 95 Room Air 12/28/16 19:44 36.6 59 20 112/74 (87) 94 Room Air 12/28/16 16:40 36.7 70 18 124/79 (94) 96 Room Air 12/28/16 16:00 96 Room Air Last 24 Hours Test 12/28/16 16:50 12/28/16 17:00 12/28/16 22:37 12/29/16 05:31 Urine Color YELLOW Urine Appearance CLEAR Urine pH 6.5 Urine Specific [place] > 1.045 Urine Protein NEG Urine Glucose (UA) NEG Urine Ketones TRACE Urine Occult Blood 3+ Urine Nitrite NEG Urine Bilirubin NEG Urine Urobilinogen NEG Urine Leukocyte Esterase NEG Urine WBC (Auto) 1-5 /hpf Urine RBC (Auto) 10-30 /hpf Urine Hyaline Casts (Auto) 0 /lpf Urine Epithelial Cells (Auto) 5-10 /lpf Urine Bacteria (Auto) NEG Total Creatine Kinase 114 U/L 107 U/L Creatine Kinase MB 2.0 ng/ml 1.9 ng/ml Creatine Kinase MB Ratio 1.8 1.8 Troponin I < 0.015 ng/ml < 0.015 ng/ml White Blood Count 3.74 K/uL Red Blood Count 4.24 M/uL Hemoglobin 13.1 g/dL Hematocrit 37.9 % Mean Corpuscular Volume 89.4 fL Mean Corpuscular Hemoglobin 30.9 pg Mean Corpuscular Hemoglobin Concent 34.6 g/dl RDW Standard Deviation 42.4 fL RDW Coefficient of Variation 13.2 % Platelet Count 155 K/uL Mean Platelet Volume 9.4 fL Erythrocyte Sedimentation Rate 2 mm/hr Sodium Level 142 mmol/L Potassium Level 3.7 mmol/L Chloride Level 115 mmol/L Carbon Dioxide Level 20 mmol/L Anion Gap 7.0 mmol/L Blood Urea Nitrogen 11 mg/dl Creatinine 0.98 mg/dl Est Creatinine Clear Calc Drug Dose 80.9 ml/min Estimated GFR () 76.9 Estimated GFR (Non- 66.3 BUN/Creatinine Ratio 11.5 Random Glucose 87 mg/dl Calcium Level 8.4 mg/dl Magnesium Level 2.1 mg/dl C-Reactive Protein < 0.29 mg/dl Triglycerides Level 97 mg/dl Cholesterol Level 152 mg/dl HDL Cholesterol 47 mg/dl LDL Cholesterol, Calculated 86 mg/dl VLDL Cholesterol, Calculated 19 mg/dl Cholesterol/HDL Ratio 3.2 Thyroid Stimulating Hormone (TSH) 3.560 uIu/ml Imaging: abdominal US- No significant abnormality identified within the right upper quadrant TTE- This was essentially a normal study. * All chambers of normal size and function * Normal bi-ventricular function * No significant valvular disease. NO ASD Exam: Physical Exam: Constitutional: appearance nourished, healthy and normal Ears, Nose, Mouth and Throat: mucous membranes moist, no injection and skin normal, eyes normal Cardiovascular: normal S-1 and S-2 and regular rate and rhythm Respiratory: clear to auscultation (CTA) and no rales, rhonchi or wheeze Musculoskeletal: no peripheral edema and good distal pulses Skin: no stigmata of neurocutaneous disease noted and normal and intact Eyes: extraocular muscles intact (EOMI) and pupils equal, round and reactive to light (PERRL) NEUROLOGIC EXAMINATION: Mental status: Alert and interactive Oriented to full date and location Oriented to person Speech fluent with no evidence of aphasia Cranial Nerves smile eye brow raise symmetric Sensory: light touch intact Coordination: finger to nose with no bi pass. no tremor Gait/Stance: Posture normal. Gait normal: with steady with steps, base, turning tandem gait. Motor: Negative for pronator drift of out stretched arms with eyes closed. Strength: right UE biceps triceps hand silk spotter 5/5, left UE biceps triceps hand silk spotter 4/5, hip flex plantar flex ext bilaterally 5/5 Current Inpatient Medications Medications (Trade) Dose Ordered Sig/Rosaura Route Start Time Stop Time Status Last Admin Dose Admin Acetaminophen (Tylenol Tab) 650 mg Q4H PRN PO 12/28/16 13:15 01/27/17 13:14 Future Hold Ondansetron HCl (Zofran Inj) 4 mg Q6H PRN IV 12/28/16 13:15 01/27/17 13:14 12/29/16 04:57 4 MG Miscellaneous (Iv Fluids Completed) 1 ea PRN PRN N/A 12/28/16 13:45 12/28/17 13:44 Ioversol (Optiray 320) 125 ml UD PRN IV 12/28/16 14:15 01/01/17 14:14 Aspirin (Ecotrin Tab) 81 mg DAILY PO 12/29/16 09:00 01/28/17 08:59 12/29/16 08:33 81 MG Clopidogrel Bisulfate (plAVix TAB) 75 mg DAILY PO 12/29/16 09:00 01/28/17 08:59 12/29/16 08:33 75 MG Diazepam (Valium Tab) 5 mg BID PRN PO 12/28/16 18:00 01/27/17 17:59 Nitroglycerin (Nitrostat Tab) 0.4 mg UD PRN SL 12/28/16 18:00 01/27/17 17:59 Topiramate (Topamax Tab) 50 mg BID PO 12/28/16 21:00 01/27/17 20:59 12/29/16 08:33 50 MG Potassium Chloride/Sodium Chloride 1,000 ml @ 100 mls/hr Q10H IV 12/28/16 18:15 01/27/17 18:14 12/29/16 14:29 100 MLS/HR Acetaminophen (Tylenol Tab) 1,000 mg Q8 PO 12/28/16 22:00 01/27/17 21:59 12/29/16 14:29 1,000 MG Non-Formulary Medication (Non-Formulary Patient'S Own Med) 1 ea QAM PO 12/29/16 09:00 01/28/17 08:59 12/29/16 08:34 1 EA Hydromorphone HCl (Dilaudid Inj) 0.5 mg Q4 PRN IV 12/28/16 21:45 01/11/17 21:44 Dicyclomine HCl (Bentyl Tab) 10 mg TID PRN PO 12/28/16 21:45 01/27/17 21:44 12/29/16 04:59 10 MG Al Hydrox/Mg Hydrox/Simethicone (Maalox Max Susp) 15 ml Q6H PRN PO 12/29/16 09:45 01/28/17 09:44 Impression 51 year old female with fibromuscular dysplasia and history of hemiplegic migraines Plan 1. CTA head - no aneurysm revealed 2. continue topamax and verapamil at home dosing would restart for headache prevention 3. left arm weakness appears weaker today but and may be part of her complex migraine history 4. cardiology input for chest pain 5. TTE NO ASD 6. persistent left arm weakness -MRI brain with and without ordered to r/o CVA 7. rheumatology - no new recommendations 8. upon discharge will follow up with MDs in [place] I have seen and discussed above patient with Dr Lasha Ramos, neurology Pataient seen she has persistent headache and marginal residual left sided facial weakness and arm and hand weakness so we are obligated to go for the mri to check for a cva or complicated migrainous event suspect scan will be normal but we are obligated here cta shows very little other than some marginal "aneurysmal like changes more likely due to infundibulum than a true saccular aneurysm will follow up tomorrow Lasha Ramos MD
[2016-12-29] MEDS ORDERED: GADAVIST IV PRN (16:45)
--- NOTE | 2016-12-29 17:16 | DIAGNOSTIC IMAGING REPORT ---
MRI OF THE BRAIN WITHOUT AND WITH IV CONTRAST CLINICAL HISTORY: Left upper extremity weakness. Evaluate for cerebrovascular accident. COMPARISON STUDY: Head CT and CTA of the head December 28, 2016. TECHNIQUE: Utilizing a 1.5 Lindsey magnet and dedicated coil, multiplanar, multiecho imaging of the brain was performed pre and postcontrast administration. IV administration of 9 mL of Gadavist contrast was uneventful. FINDINGS: There are no areas of restricted diffusion. No acute intracranial hemorrhage, midline shift or mass effect is present. Brain volume is normal. Ventricular system is normal. Basilar cisterns are patent. There are no extra-axial collections. Flow-voids for the major intracranial vessels are present. There is no intracranial mass or pathologic enhancement. There are a few small white matter T2 hyperintense foci. Calvarial signal is normal. Orbits are unremarkable. Flow-voids for the major intracranial vessels are present. IMPRESSION: 1. No acute intracranial findings. No evidence for acute infarct. 2. A few small white matter T2 hyperintense foci which are nonspecific but favor minimal small vessel disease or sequela of migraine headaches. The appearance is not typical for multiple sclerosis. Electronically signed by: Christopher Celestin M.D. 12/29/2016 5:14 PM Dictated Date/Time: 12/29/2016 5:10 PM
[2016-12-29 19:07] VITALS: BP 89/55; PULSE 57; TEMP 36.7; O2SAT 96
[2016-12-29 22:42] VITALS: BP 87/56; PULSE 54; TEMP 36.6; O2SAT 97
[2016-12-30] MEDS: NSS + 20MEQ KCL 1000ML 1,000 ML IV SCH (01:17)
[2016-12-30 04:41] VITALS: BP 90/56; PULSE 53; TEMP 36.4; O2SAT 98
[2016-12-30] MEDS: ACETAMINOPHEN 500 MG TAB PO SCH (05:43)
[2016-12-30 07:15] VITALS: BP 104/67; PULSE 52; TEMP 36.6; O2SAT 97
[2016-12-30] MEDS: DICYCLOMINE HCL 20 MG TAB PO PRN (07:32)
[2016-12-30] MEDS: ONDANSETRON INJ 2 MG/ML 2 ML VIAL IV PRN (07:32)
[2016-12-30] MEDS: VERAPAMIL PO SCH (07:34)
[2016-12-30] MEDS: ASPIRIN 81 MG ECTAB PO SCH (07:34)
[2016-12-30] MEDS: CLOPIDOGREL BISULFATE 75 MG TAB PO SCH (07:34)
[2016-12-30] MEDS: TOPIRAMATE 25 MG TAB PO SCH (07:34)
[2016-12-30 11:35] VITALS: BP 111/69; PULSE 61; TEMP 36.7; O2SAT 97
[2016-12-30] MEDS ORDERED: NURSING VERBAL MED ORDER ONE (12:00)
--- NOTE | 2016-12-30 13:32 | Progress Note ---
Internal Med Progress Note Date of Service: Dec 30, 2016. Provider Documentation: SUBJECTIVE: Seen and examined at bedside States LUE weakness is better Denies Chest pain, SOB Abdominal pain resolved, denies diarrhea Offers no other complaints OBJECTIVE: Vital Signs-as noted below Physical Exam: Vitals signs as noted above General Appearance:Moderately built and nourished, no apparent distress Head: normocephalic, Atraumatic Eyes: normal inspection, EOMI, PERRL Neck: supple, Trachea midline Respiratory/Chest: Normal breath sounds, CTA Cardiovascular: S1, S2, No murmur Abdomen/GI:Soft, Non tender, Bowel sounds present Extremities/Musculoskelatal:normal inspection, no edema Neurologic/Psych:AAOX3, grossly no focal neurological deficits Skin: normal color, warm Lab data as noted below. ASSESSMENT & PLAN: Patient is a 51 yr female with a PMH of CAD [place] (s/p stents x 3 to D2), fibromuscular dysplasia and hemiplegic migraines who presents with chest pressure, abd pain and LUE weakness Chest Pressure/pain R/o ACS; risk factors include: previous IA H/o cardiac cath in 03/29; stents x 3 to D2 Troponin negative X3 and No significant EKG changes CXR- no acute process Continue aspirin, Plavix Appreciate Cardiology input ECHO: as below Epigastric Discomfort with Nausea Ongoing for a while ABD USD; No significant abnormality identified within the right upper quadrant. Maalox/Mylanta as needed Resolved Stable brain aneurysm: Reports dizzy spell but no fall and or LOC before admission Per patient, aneurysm is at the A1-A2 junction 2/2 fibromuscular dysplasia, per patient Asymptomatic Appreciate Neurology Input No new lesion in CTA, MRI brain Fibromuscular dysplasia: Follows with Dr. 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 Discussed with today DVT Px SCDs DISPOSITION Plan to discharge home today PROCEDURES: ECHO: * This was essentially a normal study. * All chambers of normal size and function * Normal bi-ventricular function * No significant valvular disease. Vital Signs: Date Time Temp Pulse Resp B/P (MAP) Pulse Ox O2 Delivery O2 Flow Rate FiO2 12/30/16 11:35 36.7 61 18 111/69 (83) 97 Room Air 12/30/16 08:00 Room Air 12/30/16 07:15 36.6 52 18 104/67 (79) 97 Room Air 12/30/16 04:41 36.4 53 16 90/56 (67) 98 Room Air 12/30/16 04:00 Room Air 12/30/16 00:00 Room Air 12/29/16 22:42 36.6 54 18 87/56 (66) 97 Room Air 12/29/16 20:00 Room Air 12/29/16 19:07 36.7 57 16 89/55 (66) 96 12/29/16 16:00 Room Air 12/29/16 15:52 Room Air
--- NOTE | 2016-12-30 13:38 | Discharge Summary ---
Discharge Summary Date of Service Dec 30, 2016. Discharge Summary Admission Date: Dec 28, 2016 at 12:54 Discharge Date: Dec 30, 2016 Discharge Disposition: Home Principal Diagnosis: Chest Pain, hemiplegic migraine Procedures: MRI Brain: 1. No acute intracranial findings. No evidence for acute infarct. 2. A few small white matter T2 hyperintense foci which are nonspecific but favor minimal small vessel disease or sequela of migraine headaches. The appearance is not typical for multiple sclerosis. ABD USD: No significant abnormality identified within the right upper quadrant. CT Angio: 1. 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 Minimal dilation of 3 mm involving the proximal A2 segment on the left is attributed to the vessel infundibulum from the distal most anterior communicating artery without evidence of focal aneurysm within this location. 2. No high-grade stenosis, occlusion or dissection. 3. Mild atheromatous plaquing involves the distal cervical portions of the internal carotid arteries bilaterally without high-grade stenosis. CXR: 1. No acute cardiopulmonary process. 2. Coronary arterial stent graft noted. Consultations: Cardiology, Neurology Pending Studies/Follow-Up: Follow up with your Primary Care physician in 1 week as advised Follows with Dr. Swan and Hiral at the [facility] Follow up with your Turning Lathe Tender/Neurologist/Maintenance Supervisor Mechanical in 2 weeks Seek immediate medical attention if your symptoms reoccur or worsen Medication Reconciliation Continued Medications: Aspirin (Aspirin Ec) 81 Mg Tab 81 MG PO DAILY Phffbjo-Cbmqacvrmfbcd-Yomtuupa (Excedrin Migraine) 1 Tab Tab Clopidogrel (Plavix) 75 Mg Tab 75 MG PO DAILY, TAB Diazepam (Valium) 5 Mg Tab 1 TAB PO BID PRN for Headache or Pain for 30 Days, #60 TAB Nitroglycerin (Nitrostat) 0.4 Mg Tab 1 TAB SL UD, #100 TAB 3 Refills Topiramate (Topamax) 50 Mg Tab 1 TAB PO BID for 30 Days, #60 TAB 1 Refill Verapamil (Verelan Pm) 300 Mg Ercap 300 MG PO HS, CAP Admission Information HPI (per Admitting provider): This is a 51yo F with a PMH of an SC (s/p stents x 3 to D2), fibromuscular dysplasia and hemiplegic migraines who presents with chest pressure beginning this AM. Patient is in town from [place] for a conference and started to experience mid-epigastric abdominal pain with associated diarrhea after dinner last evening. Symptoms subsided overnight. Woke up this AM with substernal chest pressure that is constant, 7/10, with pain radiating down L arm. Associated symptoms include SOB, nausea and dizziness. Also endorses near syncope when walking in her hotel room preparing to come to the ER. Took 2 sublingual ntg without relief. States that this pain feels very similar to her SC in March except that she is not experiencing a burning sensation in addition to substernal pressure. This past March, patient was evaluated for similar CP at [facility] and had 3 stents placed. Later that month, patient experienced complete numbness of her L arm and was admitted to the same hospital for a stroke work-up. It was determined to be caused by a hemiplegic migraine. In April of this year, patient went to [facility] for further evaluation of her symptoms and was diagnosed with fibromuscular dysplasia. 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 Are awaiting OSH records to confirm. In addition to chest pain, diffuse abdominal pain and nausea, patient also endorses generalized fatigue and weakness. Endorses chronic lightheadedness, blurred vision and a "whooshing" sound in her ears, which she attributes to the fibromuscular dysplasia. Denies any headache, syncopal events, confusion, palpitations, vomiting, dysuria, constipation, diarrhea, LE swelling or focal neurological deficits. Physical Exam (per Admitting): General appearance: awake and alert, appears healthy, no deformities BP: 140/70 HR: 80, regular Resp: 18 Eyes: Sclera: white, conjuntiva: pink. Eyelids without erythema or lesions. PERRL. Pupils and irises round and symmetric. ENT: External ears without lesions, masses or tenderness. Nose with pink mucosa , no discharge. Oropharynx mucosa intact. No lesions, masses. Dentition intact. Neck: Supple, without lesions or masses. Trachea midline. Thyroid is non- enlarged, non-tender. Respiratory: Normal respiratory effort. No intercostal retractions or use of accessory muscles. Chest is non-tender. Clear breath sounds on auscultation. No wheezing, rales, rhonci. Cardiovascular: S1 S2 normal, no murmurs, gallops, rubs. PMI palpable, non- displaced. No edema in extremities. GI: No masses or abnormal pulsations visualized. Bowel sounds normal. Abdomen soft, non-tender. No hepatomegaly or splenomegaly. MSK: No clubbing, cyanosis of digits. Normal capillary refill. Bilateral UE and LE without asymmetry, defects or tenderness. FAROM of BLE BUE. Slight weakness noted in EMILIE of L arm compared to R arm. No muscle atrophy or abnormal movements. Skin: No rashes, lesions, ulcers. Palpation is normal, no induration. Neuro: CN II-XII intact. Sensation intact with light and sharp touch. Psych: Normal judgement, insight. Alert and oriented to person, place, time. Normal mood and affect. Hospital Course Patient is a 51 yr female with a PMH of CAD SC (s/p stents x 3 to D2), fibromuscular dysplasia and hemiplegic migraines who presents with chest pressure, abd pain and LUE weakness Chest Pressure/pain R/o ACS; risk factors include: previous SC H/o cardiac cath in 03/29; stents x 3 to D2 Troponin negative X3 and No significant EKG changes CXR- no acute process Continue aspirin, Plavix Appreciate Cardiology input ECHO: as below Epigastric Discomfort with Nausea Ongoing for a while ABD USD; No significant abnormality identified within the right upper quadrant. Maalox/Mylanta as needed Resolved Stable brain aneurysm: Reports dizzy spell but no fall and or LOC before admission Per patient, aneurysm is at the A1-A2 junction 2/2 fibromuscular dysplasia, per patient Asymptomatic Appreciate Neurology Input No new lesion in CTA, MRI brain Fibromuscular dysplasia: Follows with Dr. Swan and Hiral at the [facility] Believe that SC was caused by spontaneous coronary artery dissection (SCAD) Awaiting OSH records Appreciate Rheumatology Input -no further recommendation H/o hemiplegic migraines: Diagnosed in Mar of this year Complains of LUE weakness, improved Continue verapamil and Topamax for ppx Appreciate Neurology Input. Discussed with today DVT Px SCDs DISPOSITION Plan to discharge home today PROCEDURES: ECHO: * This was essentially a normal study. * All chambers of normal size and function * Normal bi-ventricular function * No significant valvular disease. Total time spent on discharge = This includes examination of the patient, discharge planning, medication reconciliation, and communication with other providers. Discharge Instructions Discharge Instructions Date of Service Dec 30, 2016. Admission Reason for Admission: Chest Pain,Sob Discharge Discharge Diagnosis / Problem: Chest Pain, hemiplegic migraine Discharge Goals Goal(s): Decrease discomfort, Improve function Activity Recommendations Activity Limitations: resume your previous activity Exercise/Sports Limitations: as tolerated . Instructions / Follow-Up Instructions / Follow-Up Follow up with your Primary Care physician in 1 week as advised Follows with Dr. Swan and Hiral at the [facility] Follow up with your Turning Lathe Tender/Neurologist/Maintenance Supervisor Mechanical in 2 weeks Seek immediate medical attention if your symptoms reoccur or worsen Current Hospital Diet Patient's current hospital diet: AHA Diet (Heart Healthy) Discharge Diet Recommended Diet: AHA Diet (Heart Healthy) Pending Studies Studies pending at discharge: no Laboratory Results Lipid Panel Test 12/29/16 05:31 Range/Units Triglycerides Level 97 0-150 mg/dl Cholesterol Level 152 0-200 mg/dl HDL Cholesterol 47 mg/dl Cholesterol/HDL Ratio 3.2 LDL Cholesterol, Calculated 86 mg/dl Medical Emergencies . Who to Call and When: Medical Emergencies: If at any time you feel your situation is an emergency, please call 911 immediately. . Non-Emergent Contact Non-Emergency issues call your: Primary Care Provider, Neurologist Call Non-Emergent contact if: you have a fever, your pain is not controlled, your pain is worsening, your pain is unusual for you, your pain is concerning you, you have any medication questions Seek immediate medical attention if your symptoms reoccur or worsen . . "Provider Documentation" section prepared by Edward Ludwig. . VTE Core Measure Inpt VTE Proph given/why not?: SCD's <Electronically signed by Edward Ludwig MD> Signed: 12/30/16 [id number] Signed: The status of this report is Signed * If report status is Draft, the document has not been finalized by the responsible provider.
[2016-12-30 13:43] VITALS: BP 111/69; PULSE 61; TEMP 36.7; O2SAT 97
== END 2016-12-30 14:35 | disposition home or self-care (01) ==
LOC: C.EDB 10:19 → C.MED 12:54 → ENRESERV 13:10
PROVIDERS: ADMIT Internal Medicine; ATTEND Internal Medicine
DX: R07.9 Chest pain, unspecified (principal); G43.409 Hemiplegic migraine, not intractable, without status migrainosus; I77.3 Arterial fibromuscular dysplasia; I25.2 Old myocardial infarction; H40.9 Unspecified glaucoma; Z88.5 Allergy status to narcotic agent; Z88.8 Allergy status to other drugs, medicaments and biological substances; Z90.710 Acquired absence of both cervix and uterus; Z90.89 Acquired absence of other organs; Z79.82 Long term (current) use of aspirin; Z79.02 Long term (current) use of antithrombotics/antiplatelets; Z82.49 Family history of ischemic heart disease and other diseases of the circulatory system